=== PATIENT | female | born 1930 | race Caucasian/White ===

== ENCOUNTER 2017-04-10 18:00 | Inpatient (IN) ==
[2017-04-10 18:39] LABS: Basophils % 0.7 % (0.0-0.8); Eosinophils # 0.3 10*3/uL (0.0-0.87); Eosinophils % 4.4 % (0.00-10.9); Hematocrit 40.2 VOL% (35.7-47.0); Hemoglobin 13.6 GM/DL (12.0-16.0); Immature Granulocytes % 0.2 %; Immature Granulocytes Absolute 0.01 #; Lymphocytes # 1.5 10*3/uL (1.4-4.0); Lymphocytes % 26.2 % (21.3-54.2); Mean Corpuscular HGB Conc 33.8 GM/DL (32-36); Mean Corpuscular Hemoglobin 30 PG (27-34); Mean Corpuscular Volume 89.3 FL (87-102); Mean Platelet Volume 11.2 FL (9.6-12.0); Monocytes # 0.4 10*3/uL (0.11-0.8); Monocytes % 6.8 % (1.7-12.7); Neutrophils # 3.6 10*3/uL (1.4-7.4); Neutrophils % 61.7 % (38.7-73.9); Platelet Count 203 T/CUMM (130-400); Red Cell Distribution Width 12.6 % (9.3-17.3); White Blood Count 5.9 T/CUMM (4-12)
[2017-04-10 18:42] LABS: Apearance,Urine CLEAR (Clear); Bilirubin,Urine Negative (Negative); Blood, Urine Small mg/dL (Negative); Glucose,Urine (UA) Negative (Negative); Ketones,Urine Negative (Negative); Mucus,Urine Occasional /LPF (Occasional); Nitrite,Urine Negative (Negative); Protein,Urine 30 MG/DL; RBC,Urine 1 /HPF (0-4); Squamous Epithelial Cell,Urine Occasional /HPF (0-10); Urine Color Yellow (Yellow); Urine Specific Gravity 1.017 (1.001-1.035); Urine Urobilinogen < 2.0 EU/DL (0.2-1.0); WBC,Urine 3 /HPF (0-6)
[2017-04-10 18:49] LABS: INR 1.1; PT Patient Result 11.2 SECS; Partial Thromboplastin Time 26.3 SECS (0-40)
[2017-04-10 18:51] LABS: Barbiturates Screen,Urine Negative (Negative); Benzodiazepines Screen,Urine Negative (Negative); Cannabinoid Screen,Urine Negative (Negative); Opiate Screen,Urine Negative (Negative); Phencyclidine Screen,Urine Negative (Negative)
--- NOTE | 2017-04-10 18:51 | Emergency Department Note ---
Jeovanny Hendricks Mantricia, am scribing for, and in the presence of, Prudencio Zhao MD 18:36. Cece Hendricks Charles R, MD, personally performed the services described in this documentation, ascribed by Arcadio Up in my presence, and it is both accurate and complete [id number] . Arrival - Arrival Chief Complaint: Weakness Stated Complaint: Weakness ED Nursing Triage Note: PATIENT TO TRIAGE WITH WHEELCHAIR WITH C/O WEAKNESS TO THE LEFT SIDE. SHE STATES SHE CAN'T WALK WITHOUT HOLDING ON TO SOMEHTING AND THAT IS NOT NORMAL FOR HER. SHE STATES THAT HER LEFT SIDE DOES NOT FEEL LIKE HER RIGHT SIDE. Mode of Arrival: Wheelchair Limitations: No Limitations Source: Patient Time Seen by Provider: 04/10/17 18:13 - History of Present Illness HPI Narrative: Pt is an 87 y/o white female arriving to ED via wheelchair with c/o left sided weakness that onset today. She reports that her left arm seems heavy and she has been dragging her left leg when she walks but denies any difficulty swallowing. reports minimal slurred speech. She states that "she cannot make her legs do what she wants them to do." Pt has a PMHx of CVA in 2007 and is unsure what side was affected. She states that her last CVA was found with a MRI. No other complaints were reported to ED. Onset (ago): hour(s) Consistency: constant Severity: mild Allergies/Adverse Reactions: Allergies Allergy/AdvReac Type Severity Reaction Status Date / Time No Known Allergies Allergy Unverified 04/10/17 18:04 Home Medications: Home Medications Medication Instructions Recorded Confirmed Type Aspirin EC Tab 81 mg PO BID 04/10/17 04/10/17 History Blood Pressure Medication 0 mg PO QAM 04/10/17 04/10/17 History Colesevelam [Welchol] 1,250 mg PO AC 04/10/17 04/10/17 History Esomeprazole Magnesium 40 mg PO QAM 04/10/17 04/10/17 History [Esomeprazole] Glaucoma Drops 0 drops BOTH EYES BID 04/10/17 04/10/17 History Levothyroxine Tab [Synthroid Tab] 125 mcg PO DAILY@0700 04/10/17 04/10/17 History Review of System - Review of System 12 point system: reviewed and no additional remarkable complaints except as stated - Review of System Constitutional: Present: weakness (left sided). Absent: chills, diaphoresis Cardiovascular: Absent: chest pain Gastrointestinal: Absent: abdominal pain, nausea, vomiting, diarrhea Musculoskeletal: Absent: arm pain, back pain, leg pain, neck pain Skin: Absent: rash Neurological: Present: weakness (left sided), numbness, abnormal gait Psychiatric: Absent: anxiety, depression Medical,Surgical,& Family Hx - Medical History Neurology: History of: Cerebrovascular Accident (2007) HEENT: History of: Glaucoma - Surgical History HEENT Surgeries: Surgical HX of: Eye Surgery (Cataract) Reproductive Surgeries: Surgical HX of;: Hysterectomy - Social History Smoking Status: Never smoker Frequency of Alcohol Use: None Type of Drug Use: None Exam Vital Signs: Vital Signs Temperature 98.8 F 04/10/17 18:16 Pulse Rate 71 04/10/17 18:30 Respiratory Rate 21 04/10/17 18:30 Blood Pressure 158/59 04/10/17 18:30 O2 Sat by Pulse Oximetry 96 04/10/17 18:30 - General General appearance: alert, in no apparent distress - Head Head exam: Present: atraumatic, normocephalic, normal inspection - Eye Eye exam: Present: normal appearance, PERRL, EOMI - ENT ENT exam: Present: normal exam, normal oropharynx, mucous membranes moist, TM's normal bilaterally, normal external ear exam - Neck Neck exam: Present: normal inspection, full ROM, trachea midline. Absent: tenderness - Chest Chest inspection: Present: normal inspection, symmetric chest wall rise. Absent : tenderness - Respiratory Respiratory exam: Present: normal lung sounds bilaterally - Cardiovascular Cardiovascular exam: Present: regular rate, normal rhythm, normal heart sounds - Abdominal Exam Abdominal exam: Present: soft, normal bowel sounds. Absent: distention, tenderness, guarding, rebound - Extremities Exam Extremities exam: Present: normal inspection, full ROM, normal capillary refill. Absent: tenderness, pedal edema - Back Exam Back exam: Present: normal inspection, full ROM. Absent: tenderness - Neurological Exam Neurological exam: Present: other (left sided weakness excluding face) - Expanded Neurological Exam Patient oriented to: Present: person, place, time Cranial nerves: EOM function (II, III, IV, ): Normal, facial sensation (V): Normal, facial palsy (VII): Normal, gag reflex (IX): Normal, spinal accessory function (XI): Normal, tongue deviation (XII): Normal Cerebellar function: finger to nose: Normal, heel to friend: Normal Cerebellar function: normal gait Motor strength - LUE: 3/5 Motor strength - RUE: 5/5 Motor strength - LLE: 3/5 Motor strength - RLE: 5/5 - Psychiatric Psychiatric exam: Present: normal affect, normal mood - Skin Skin exam: Present: warm, dry, intact, normal color Course - Consultations Consultation #1: Hospitalist will admit patient Time: 19:35 Results - Labs CBC & BMP: 04/10/17 18:21 04/10/17 18:21 Lab Results: I have reviewed the patients labs Disposition Clinical Impression: CVA (cerebral vascular accident), Unsteady gait, Left-sided weakness Case discussed with: patient, patient's family Disposition: Still a Patient Condition: Stable Time of Disposition: 19:35 NIH Stroke Score - Stroke Score Initial Assessment Level of Consciousness: Alert Level of Consciousness Questions: Answers Both Correctly Level of Consciousness Commands: Obeys Both Correctly Best Gaze: Normal Visual Mendez: No Visual Loss Facial Palsy: Normal Motor - Right Arm: No Drift Motor - Left Arm: No Drift Motor - Right Leg: No Drift Motor - Left Leg: No Drift Limb Ataxia: Present in One Limb Sensory (Pin Prick): Partial Loss Best Language: Normal Dysarthria: Normal Extinction / Inattention (Neglect): No Neglect NIH Stroke Score: 2
[2017-04-10 19:02] LABS: Alanine Aminotransferase 33 U/L (13-56); Albumin 3.6 G/DL (3.4-5.0); Alkaline Phosphatase 65 U/L (45-117); Aspartate Amino Transferase 32 U/L (0-37); Bilirubin,Total < 0.39 MG/DL (0.2-1.0); Blood Urea Nitrogen 20 MG/DL (7-18); Calcium 8.8 MG/DL (8.5-10.1); Glucose 120 MG/DL (74-106); Osmolality,Calculated 284.3 MOS/KG (273-304); Potassium 4.5 MMOL/L (3.5-5.1); Sodium 141 MMOL/L (136-145); Troponin I Only < 0.015 NG/ML (0.00-0.045)
--- NOTE | 2017-04-10 19:06 | CT Report ---
CT head/brain wo con Indication: Hemiparesis. Laterality not mentioned. Comparison: None. Technique: CT of the brain was performed without administration of intravenous contrast. The CT examination was performed using one or more of the following dose reduction techniques: Automatic exposure control, adjustment of the mA and kV according to patient size, use of acute or iterative reconstruction techniques. Findings: Generalized atrophy is demonstrated. Additionally symmetric periventricular white matter hypoattenuation is noted with lacunar infarction suggested within the right basal ganglia and additional focal hypoattenuation adjacent the left caudate nucleus. No specific features of acute ischemia change are present. The basal cisterns are patent. No significant abnormality is demonstrated to involve the posterior fossa or cerebellum. Orbits and globes demonstrate no evidence of significant pathology. The paranasal sinuses are clear. No significant abnormality is demonstrated to involve the mastoid air cells. The calvarium and overlying soft tissues demonstrate no evidence of acute pathology. Impression: 1. No CT evidence of acute intracranial pathology. MRI without intravenous contrast is recommended to exclude acute ischemia. 04/10/2017 7:02 PM PROCEDURE INTERPRETED AT [facility] DEPARTMENT OF RADIOLOGY Final Report Signed by: Dr. Bruce Yi
--- NOTE | 2017-04-10 19:06 | XRay Report ---
XR chest 1V portable Indication: Cardiomegaly Comparison: None. Technique: Portable AP chest was performed. Findings: Heart size is upper limits of normal. Mild atherosclerotic calcification of the aortic knob is present. Pulmonary vasculature appears within normal limits. No significant abnormality of the mediastinal contours demonstrated. Lungs are clear. Bones and soft tissues demonstrate no significant abnormalities. Impression: 1. No evidence of acute pathology. 04/10/2017 7:03 PM PROCEDURE INTERPRETED AT [facility] DEPARTMENT OF RADIOLOGY Final Report Signed by: Dr. Bruce Yi
[2017-04-10] MEDS ORDERED: LABETALOL 20 MG/4 ML SYRINGE IV PRN (20:08)
--- NOTE | 2017-04-10 20:24 | Hospitalist History & Physical ---
Assessment and Plan (1) CVA (cerebral vascular accident) Status: Acute Current Visit: Yes (2) Left-sided weakness Status: Acute Current Visit: Yes (3) Unsteady gait Status: Acute Assessment and plan: I suspect patient has had a mild stroke. I am going to get an MRI evaluation a carotid ultrasound evaluation and consult neurology. Check a fasting lipid profile and recheck labs in the morning. She has had no difficulty swallowing or speaking. Her symptoms have been greater than 24 hours. Will get physical therapy and occupational therapy to evaluate her. Current Visit: Yes History of Present Illness Chief complaint: Weakness History of present illness: Ms. Alonso is a 87 year old female with past medical history significant for a stroke in 2007 hypertension glaucoma and hypothyroidism who is her normal state of health till last night. She reports that she was off balance and cannot walk as she normally does. Patient said her symptoms have not improved. That her left side does not feel like her right side. She denies any slurred speech or any problems swallowing. She decided to come up to our ER for evaluation today. She normally sees Dr. Rhodes I was consulted to admit her. Patient's initial CT scan was negative Home Medications Medication Instructions Recorded Confirmed Type Aspirin EC Tab 81 mg PO BID 04/10/17 04/10/17 History Blood Pressure Medication 0 mg PO QAM 04/10/17 04/10/17 History Colesevelam [Welchol] 1,250 mg PO AC 04/10/17 04/10/17 History Esomeprazole Magnesium 40 mg PO QAM 04/10/17 04/10/17 History [Esomeprazole] Glaucoma Drops 0 drops BOTH EYES BID 04/10/17 04/10/17 History Levothyroxine Tab [Synthroid Tab] 125 mcg PO DAILY@0700 04/10/17 04/10/17 History Allergies Allergy/AdvReac Type Severity Reaction Status Date / Time No Known Allergies Allergy Unverified 04/10/17 18:04 Medical,Surgical,& Family Hx - Medical History Neurology: History of: Cerebrovascular Accident (2007) HEENT: History of: Glaucoma - Surgical History HEENT Surgeries: Surgical HX of: Eye Surgery (Cataract) Reproductive Surgeries: Surgical HX of;: Hysterectomy - Family History Family History: Reports;: Family Heart Disease - Social History Smoking Status: Never smoker Frequency of Alcohol Use: None Type of Drug Use: None 12 point system: reviewed and no additional remarkable complaints except as stated Exam - Constitutional Vitals: Period Temp Pulse Resp BP Sys/Watts Pulse Ox Last 24 Hr 98.8 F-98.8 F 71-85 18-21 109-178/59-83 96-99 - General General appearance: alert, in no apparent distress - Head Head exam: Present: atraumatic, normocephalic, normal inspection - Eye Eye exam: Present: normal appearance, PERRL, EOMI - ENT ENT exam: Present: normal exam, normal oropharynx, mucous membranes moist, TM's normal bilaterally, normal external ear exam - Neck Neck exam: Present: normal inspection, full ROM, trachea midline. Absent: tenderness - Chest Chest inspection: Present: normal inspection, symmetric chest wall rise. Absent : tenderness - Respiratory Respiratory exam: Present: normal lung sounds bilaterally - Cardiovascular Cardiovascular exam: Present: regular rate, normal rhythm, normal heart sounds - Abdominal Exam Abdominal exam: Present: soft, normal bowel sounds. Absent: distention, tenderness, guarding, rebound - Extremities Exam Extremities exam: Present: normal inspection, full ROM, normal capillary refill. Absent: tenderness, pedal edema - Back Exam Back exam: Present: normal inspection, full ROM. Absent: tenderness - Neurological Exam Neurological exam: Present: other (left sided weakness excluding face) patient had no tongue deviation facial sensation is normal bilaterally. She does seem to be having left upper extremity and right and left lower extremity weakness. I would rate the weakness is a 3 out of 5 - Psychiatric Psychiatric exam: Present: normal affect, normal mood - Skin Skin exam: Present: warm, dry, intact, normal color Results - Labs CBC & BMP: 04/10/17 18:21 04/10/17 18:21
[2017-04-10 20:38] LABS: Risk Ratio 3.21
[2017-04-10] MEDS: ENOXAPARIN 40 MG/0.4 ML SYRINGE SUBCUT SCH (22:00)
--- NOTE | 2017-04-11 02:12 | EKG Report ---
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
--- NOTE | 2017-04-11 08:05 | Ultrasound Report ---
US carotid duplex BI Indication: Left-sided weakness. Comparison: None. Technique: Multiple longitudinal and transverse real-time sonographic images of the bilateral carotid arterial systems are obtained with grayscale, spectral, and color Doppler analysis. Findings: Peak systolic velocities within the right CCA, proximal ICA, and distal ICA are 65, 56, and 72 cm/s respectively. Peak systolic velocities within the left CCA, proximal ICA, and distal ICA are 74, 55, and 61 cm/s respectively. ICA/CCA ratios on the right and left are 1.1 and 0.8 respectively. Antegrade flow demonstrated within the bilateral vertebral arteries. Grayscale imaging demonstrates mild bilateral atherosclerotic plaque. IMPRESSION: No convincing sonographic evidence of significant (50% or greater) narrowing of either cervical internal carotid artery. Indirect NASCET criteria utilized. PROCEDURE INTERPRETED AT [facility] DEPARTMENT OF RADIOLOGY Final Report Signed by: Dr Mathew Quinonez
[2017-04-11 08:09] LABS: Basophils # 0.1 10*3/uL (0.0-0.2); Basophils % 0.9 % (0.0-0.8); Eosinophils # 0.3 10*3/uL (0.0-0.87); Eosinophils % 5.3 % (0.00-10.9); Hematocrit 39.5 VOL% (35.7-47.0); Hemoglobin 13.7 GM/DL (12.0-16.0); Immature Granulocytes % 0.4 %; Immature Granulocytes Absolute 0.02 #; Lymphocytes # 1.5 10*3/uL (1.4-4.0); Lymphocytes % 27.5 % (21.3-54.2); Mean Corpuscular HGB Conc 34.7 GM/DL (32-36); Mean Corpuscular Hemoglobin 31 PG (27-34); Mean Corpuscular Volume 88.2 FL (87-102); Mean Platelet Volume 11.4 FL (9.6-12.0); Monocytes # 0.5 10*3/uL (0.11-0.8); Monocytes % 8.4 % (1.7-12.7); Neutrophils # 3.2 10*3/uL (1.4-7.4); Neutrophils % 57.5 % (38.7-73.9); Platelet Count 211 T/CUMM (130-400); Red Blood Count 4.48 MC/CUMM (3.8-5.5); Red Cell Distribution Width 12.5 % (9.3-17.3); White Blood Count 5.6 T/CUMM (4-12)
[2017-04-11 08:44] LABS: Calcium 8.4 MG/DL (8.5-10.1); Potassium 3.9 MMOL/L (3.5-5.1)
[2017-04-11] MEDS: COLESEVELAM 625 MG TABLET PO SCH ×3 (09:15→16:08)
[2017-04-11] MEDS: ASPIRIN 325 MG TABLET PO SCH (09:16)
[2017-04-11] MEDS: LEVOTHYROXINE 125 MCG TABLET PO SCH (09:16)
[2017-04-11] MEDS: PANTOPRAZOLE 40 MG TABLET PO SCH (09:16)
--- NOTE | 2017-04-11 10:27 | Hospitalist Progress Note ---
Assessment and Plan (1) CVA (cerebral vascular accident) Status: Acute Assessment and plan: 1)CVA- clinically her presentation is consistent with stroke. MRI, echo, carotids. LDL 130- start statin. Dr perdomo to see. Begin asa. PT and OT. BP 151 /72, restart usual norvasc. 2)follow up with Dr Man her PCP after discharge. Current Visit: Yes Hospitalist: Subjective Interval history: Ms Alonso started to have left arm and leg weakness a week ago and came in yesterday because it wasn't getting better. In fact it had not changed. Head CT unrevealing. MRI brain today with carotids, add echo. PT and OT to see. Dr Perdomo to see. She wants to go home today.. Exam - Constitutional Vitals: Period Temp Pulse Resp BP Sys/Watts Pulse Ox Last 24 Hr 97.1 F-98.8 F 68-84 18-21 149-178/59-83 92-99 General appearance: normal weight, no acute distress - Head Head exam: Present: normocephalic, atraumatic - Eye Eye exam: Present: EOMI. Absent: scleral icterus Pupils: Present: NAVEEN - Respiratory Respiratory exam: Present: clear to auscultation bilaterally - Cardiovascular Cardiovascular exam: Present: regular rate and rhythm - GI/Abdominal GI/Abdominal exam: Present: normal bowel sounds, soft. Absent: tenderness - Extremities Exam Extremities exam: Absent: edema - Neurological Exam Neurological exam: Present: alert, oriented X3 - Expanded Neurological Exam Neurological exam: Absent: ataxia, expressive aphasia Patient oriented to: Present: person, place, time Speech: Present: fluid speech Cranial nerves: EOM's intact: Normal, facial palsy with forehead movement: Normal, facial palsy without forehead movement: Normal Cerebellar function: finger to nose: Normal, heel to friend: Normal Neuro motor strength exam: LUE: 4, RUE: 5, LLE: 4, RLE: 5 - Skin Skin exam: Present: warm, dry Results - Labs CBC & BMP: 04/11/17 07:53 04/11/17 07:53 Lab Results: I have reviewed the past 24 hour labs
--- NOTE | 2017-04-11 12:58 | Magnetic Resonance Report ---
History: CVA. Left-sided weakness Date: 04/11/2017 Study: MRI brain without IV contrast Comparison exam: No previous MRI brain available for comparison purposes. CT scan from 04/10/2017 is available for review The exam was performed within 24 hours of admission. The brain was imaged in 3 planes on the 1.5 [place] magnet without IV contrast, to include diffusion, T2, FLAIR, gradient echo, and T1-weighted sequences. The ventricles are midline in position without evidence of hydrocephalus. There is no Chiari I malformation. There is no gross pituitary mass. There is a roughly 10 mm rounded area of restricted diffusion in the right parietal deep white matter compatible with acute ischemia between 6 hours and 4 days old. No areas of acute ischemia are seen otherwise. There is no acute hemorrhage. There is a punctate focus of hypointense gradient echo signal compatible with hemosiderin from remote hemorrhage within the anterior aspect of the right thalamus. There is a moderate amount of patchy increased FLAIR and T2 signal in the periventricular white matter without mass effect compatible with changes of small vessel disease. Mild small vessel disease is also noted in the vashti and midbrain. Punctate foci of hypointense T1 and increased T2 signal compatible with areas of chronic lacunar ischemia are noted in the putamen bilaterally and left thalamus. Chronic lacunar infarction is also noted in the caudate nuclei bilaterally. There is no mass effect. There is no extra-axial hematoma. There is a normal flow void in superior sagittal sinus. There is no gross flow abnormality in the m[place] of [place] area. Remote post cataract surgery changes are present bilaterally. Impression: 10 mm area of acute ischemia in the right parietal deep white matter. No acute parenchymal hemorrhage. Evidence of a small focus of remote hemorrhage in the right thalamus. Chronic ischemic changes PROCEDURE INTERPRETED AT [facility] DEPARTMENT OF RADIOLOGY Final Report Signed by: Dr. Tami Christianson
[2017-04-11] MEDS: amLODIPine 5 MG TABLET PO SCH (13:46)
[2017-04-11] MEDS: ATORVASTATIN 10 MG TABLET PO SCH (13:46)
--- NOTE | 2017-04-11 15:18 | Neurology Consult Note ---
History of Present Illness History of present illness: 87 years old right-handed white lady with past medical history significant for hypertension, history of a stroke in 2007 without any residual problem, hypothyroidism admitted the hospital with acute onset of left-sided weakness and numbness. Patient reported that she noticed yesterday that she has difficulty in maneuvering her left leg. She also noticed that her left arm was not working right either. She denies any speech difficulties or swallowing problems. She denies any vision problems either. She came to the hospital and underwent MRI of the brain which revealed acute right parietal lobe infarct. Carotid ultrasound is unremarkable. Lipid profile is significantly abnormal and she is on Lipitor now. She is able to get up and walk with the help of a walker. Home Medications Medication Instructions Recorded Confirmed Type Colesevelam [Welchol] 1,250 mg PO TID 04/10/17 04/11/17 History Esomeprazole Magnesium 40 mg PO QAM 04/10/17 04/10/17 History [Esomeprazole] Levothyroxine Tab [Synthroid Tab] 125 mcg PO DAILY@0700 04/10/17 04/11/17 History Alendronate Sodium 35 mg PO Q7DAY 04/11/17 04/11/17 History Amlodipine Besylate 5 mg PO DAILY 04/11/17 04/11/17 History Colesevelam [Welchol] 625 mg PO DAILY 04/11/17 04/11/17 History Esomeprazole Magnesium [Nexium] 40 mg PO DAILY 04/11/17 04/11/17 History Latanoprost 0.005% Oph Soln 1 drop BOTH EYES BEDTIME 04/11/17 04/11/17 History [Xalatan 0.005% Oph Soln] Timolol Maleate [Timolol 0.5% Oph 1 drop BOTH EYES DAILY 04/11/17 04/11/17 History Soln] Allergies Allergy/AdvReac Type Severity Reaction Status Date / Time No Known Allergies Allergy Unverified 04/10/17 18:04 12 point system: reviewed and no additional remarkable complaints except as stated Medical,Surgical,& Family Hx - Medical History Cardio: History of: Hypertension Neurology: History of: Cerebrovascular Accident (2007) HEENT: History of: Glaucoma - Surgical History HEENT Surgeries: Surgical HX of: Eye Surgery (Cataract) Reproductive Surgeries: Surgical HX of;: Gynecologic Surgery, Hysterectomy - Family History Family History: Reports;: Family Heart Disease - Social History Smoking Status: Never smoker Frequency of Alcohol Use: None Type of Drug Use: None Exam - Constitutional Vitals: Period Temp Pulse Resp BP Sys/Watts Pulse Ox Last 24 Hr 97.1 F-98.8 F 68-84 18-21 149-178/59-83 92-99 Exam: GENERAL: Patient is in no acute distress. NECK: Neck is supple. There is no JVD. No carotid bruits present. No thyroid masses. CVS: First and second heart sounds are normal. There is no S3 present. Regular rate and rhythm. RESPIRATORY: Lungs are clear to auscultation without any rales or rhonchi. ABDOMEN: Soft and non-tender. Bowel sounds are present. There is no hepatosplenomegaly. EXT: There is no palpable edema. Peripheral pulses are present. Skin: No rashes Central Nervous system: General: Alert, awake and Oriented x 3 Speech: Fluent Comprehension: Intact and normal Facial expressions: Normal Cranial Nerves: CN1/Olfactory: Normal CN II/ Optic: Normal, Visual Mendez unreliable CN III, and : NAVEEN & EOMI CN V: Normal & intact CN VII: face is symmetric CNVIII: Normal CN XI/X/XI/XII: Intact and Normal Motor: Bulk and Tone is normal. Strength in the right 5/5 Strength in the left 4+/5 Sensory: Decreased for all the modalities of PP, LT and temp sense in the left arm and leg Reflexes: 1+ and symmetrical Cerebellar function: Normal finger to nose and heel to friend testing. Toes: Equivocal Gait: Not tested at this time Results - Labs CBC & BMP: 04/11/17 07:53 04/11/17 07:53 Assessment and Plan (1) Acute CVA (cerebrovascular accident) Status: Acute Assessment and plan: Continue aspirin a day Outpatient PT and OT Current Visit: Yes (2) Hyperlipidemia Status: Acute Assessment and plan: Agree with aggressive statin use and lipid management Thank you for the consult Current Visit: Yes
[2017-04-11] MEDS: ENOXAPARIN 40 MG/0.4 ML SYRINGE SUBCUT SCH (20:53)
[2017-04-11] MEDS ORDERED: LATANOPROST 0.005% OPH SOLN 2.5 ML BOTTLE BOTH EYES SCH (21:00)
[2017-04-12] MEDS: LEVOTHYROXINE 125 MCG TABLET PO SCH ×2 (05:59→08:39)
--- NOTE | 2017-04-12 06:56 | ECHO Report ---
Paige Alonso 04/11/2017 Exam Date: 13:06 Referring Physician: donavan Wallace Technologist: NOLAN MARTIN Age: 87 Ht (in): 61 Wt (lb): 122 [facility]Ex[facility] Echo [id number]: Lt. sided weakness, CVA, Unsteady gaitIndications: BP: 151 / 72 HR: 74 SinusRhythm: FairTechnical Quality: IMPRESSIONS Normal LV systolic function, ejection fraction 65%. Grade 1/4 diastolic dysfunction. Trace mitral and pulmonic regurgitation. Mild tricuspid and aortic regurgitation. MEASUREMENTS (Male / Female) Normal Values 2D ECHO LV Diastolic Diameter PLAX 3.8 cm 4.2 - 5.9 / 3.9 - 5.3 cm LV Systolic Diameter PLAX 2.1 cm LV Fractional Shortening PLAX 43.1 % IVS Diastolic Thickness 1.1 cm 0.6 - 1.0 / 0.6 - 0.9 cm LVPW Diastolic Thickness 1.1 cm 0.6 - 1.0 / 0.6 - 0.9 cm RV Internal Dim ED PLAX 2.7 cm Aortic Root Diameter 2.4 cm LA Systolic Diameter LX 2.7 cm 3.0 - 4.0 / 2.7 - 3.8 cm DOPPLER TR Peak Velocity 261.0 cm/s TR Peak Gradient 27.2 mmHg FINDINGS Left Ventricle Normal left ventricular cavity size. Normal left ventricular wall thickness. Left ventricular ejection fraction is estimated at 65 %. Right Ventricle The right ventricle is normal in size and function. Right Atrium The right atrium is normal in size. Left Atrium The left atrium is normal in size. Mitral Valve Morphologically normal mitral valve. Trace mitral valve regurgitation. Aortic Valve No aortic valve stenosis. Mild aortic valve regurgitation. Tricuspid Valve Morphologically normal tricuspid valve. Mild tricuspid valve regurgitation. Pulmonic Valve Morphologically normal pulmonic valve. Trace pulmonary valve regurgitation. Pericardium Normal pericardium without effusion. Aorta Normal ascending aorta dimension. Elizabeth Buckley MD (Electronically Signed) 12 April 2017 Final Date: 06:55
[2017-04-12] MEDS: ASPIRIN 325 MG TABLET PO SCH (08:38)
[2017-04-12] MEDS: COLESEVELAM 625 MG TABLET PO SCH ×2 (08:38→12:12)
[2017-04-12] MEDS: amLODIPine 5 MG TABLET PO SCH (08:39)
[2017-04-12] MEDS: ATORVASTATIN 10 MG TABLET PO SCH (08:40)
[2017-04-12] MEDS ORDERED: TIMOLOL 0.5% OPH SOLN 5 ML BOTTLE BOTH EYES SCH (09:00)
[2017-04-12] MEDS: PANTOPRAZOLE 40 MG TABLET PO SCH (10:12)
--- NOTE | 2017-04-12 11:00 | Discharge Summary ---
Hospital Course - Hospital Course Hospital Course: Mrs Alonso presented a week after having abrupt onset of left side arm and leg weakness. She was evaluated with carotids, echo, MRI brain , PT and OT , neuro consult, lipid panel. The MRI showed an acute stroke. Her carotid disease was unremarkable. Seh was started on ASA. She refused lipitor because that type of medicine had made her sick in the past. She will continue Welchol. She will have outpatient PT and OT and see Dr Man her PCP and DR Katz in the clinic. I told her that if thsi happens again she should come as soon as she notices the symptoms because she might be a candidate for TPA. - Time spent with patient Time with patient DS: Greater than 30 minutes (exam, discharge planning, medicine reconciliation, documentation) Diagnosis - Discharge Diagnosis (1) CVA (cerebral vascular accident) Status: Acute Specialty Discharge - Follow Up or Referrals Follow up with: Varun Katz MD [Physician] - 05/23/17 9:45 am Aurelio Man MD [Physician] - 04/18/17 1:45 pm Discharge Plan - Discharge Data Disposition: Home Health Service Condition at Discharge: Stable Discharge Diet: heart healthy, regular diet Activity: resume usual activities as tolerated, as per physical therapy - Discharge Medications New Aspirin Tab 325 mg PO DAILY tablet Atorvastatin [Lipitor] 10 mg PO DAILY #30 tablet Continue Esomeprazole Magnesium [Esomeprazole] 40 mg PO QAM Colesevelam [Welchol] 1,250 mg PO TID Timolol Maleate [Timolol 0.5% Oph Soln] 1 drop BOTH EYES DAILY Latanoprost 0.005% Oph Soln [Xalatan 0.005% Oph Soln] 1 drop BOTH EYES BEDTIME Alendronate Sodium 35 mg PO Q7DAY Levothyroxine Tab [Synthroid Tab] 125 mcg PO DAILY@0700 Amlodipine Besylate 5 mg PO DAILY Colesevelam [Welchol] 625 mg PO DAILY Discontinued Esomeprazole Magnesium [Nexium] 40 mg PO DAILY - Follow Up or Referral Follow Up: Varun Katz MD [Physician] - 05/23/17 9:45 am Aurelio Man MD [Physician] - 04/18/17 1:45 pm - Forms/Instructions Instructions: Ischemic Stroke (DC), Self Care Measures After a Stroke (DC) Exam - Constitutional Vitals: Period Temp Pulse Resp BP Sys/Watts Pulse Ox Last 24 Hr 97.2 F-97.8 F 71-95 17-20 120-145/64-84 93-97 General appearance: normal weight, no acute distress - Eye Eye exam: Present: EOMI. Absent: scleral icterus - Respiratory Respiratory exam: Present: clear to auscultation bilaterally - Cardiovascular Cardiovascular exam: Present: regular rate and rhythm - GI/Abdominal GI/Abdominal exam: Present: normal bowel sounds, soft. Absent: tenderness - Extremities Exam Extremities exam: Absent: edema - Neurological Exam Neurological exam: Present: alert, oriented X3, motor sensory deficit (left arm and leg with 4/5 strength. ambulates with walker ok. ). Absent: CN II-XII intact (speech clear) - Skin Skin exam: Present: warm, dry DS: Provider Date of admission: 04/10/17 20:08 Primary care physician: . No PCP Attending physician on admission: Manish Browne MD Consults: 04/10/17 20:09 Consult to Case Mgmt/Social Srvs [CONS] Routine Reason for Case Mgmt/Social Srvs: Discharge Planning Consult to Occupational Therapy [CONS] Routine Reason for Occupational Therapy: Evaluate and Treat Consult Comment: Stroke Consult to Physical Therapy [CONS] Routine Reason for Physical Therapy: Evaluate and Treat Consult Comment: stroke 04/10/17 20:16 Consult to Physician [CONS] Routine Comment: Consulting Provider: Varun Katz Consult to Specialist Group: Neurology When should Consulting Provider be notified: In am Person Notified: raffi Date Notified: 04/11/17 Time Notified: 12:44 Consult Notification Comment: left message 04/11 at 0905 04/12/17 08:25 Consult to Case Mgmt/Social Srvs [CONS] Routine Reason for Case Mgmt/Social Srvs: Home Health Consult Comment: with pt/ot Discharging clinician: Dali Leary MD
[2017-04-12 11:46] VITALS: BP 133/71
[2017-04-18] MEDS ORDERED: Alendronate Sodium [Alendronate Sodium] 35 MG Tablet PO SCH (09:00)
== END 2017-04-12 12:42 | disposition home health service (06) | DRG 65 ==
LOC: N.ED 18:00 → N.EDINP 20:08 → SUATTDRO 20:08 → N.5E 20:56
PROVIDERS: ADMIT Internal Medicine; ATTEND Internal Medicine

== ENCOUNTER 2019-08-27 11:11 | Observation (INO) ==
[2019-08-27] MEDS ORDERED: MORPHINE 4 MG/1 ML VIAL IV STA (12:26)
[2019-08-27] MEDS ORDERED: ONDANSETRON 4 MG/2 ML VIAL IV STA (12:26)
[2019-08-27 12:48] LABS: Basophils % 0.3 % (0.0-0.8); Eosinophils % 0.3 % (0.00-10.9); Hematocrit 40.3 VOL% (35.7-47.0); Hemoglobin 13.1 GM/DL (12.0-16.0); Immature Granulocytes % 0.4 %; Immature Granulocytes Absolute 0.04 #; Lymphocytes % 9.7 % (21.3-54.2); Mean Corpuscular HGB Conc 32.5 GM/DL (32-36); Mean Corpuscular Volume 90.4 FL (87-102); Mean Platelet Volume 10.5 FL (9.6-12.0); Monocytes % 2.7 % (1.7-12.7); Neutrophils % 86.6 % (38.7-73.9); Platelet Count 337 T/CUMM (130-400); Red Blood Count 4.46 MC/CUMM (3.8-5.5); Red Cell Distribution Width 12.6 % (9.3-17.3)
[2019-08-27] MEDS ORDERED: ONDANSETRON 4 MG/2 ML VIAL IV PRN (13:11)
[2019-08-27] MEDS ORDERED: ACETAMINOPHEN 325 MG TABLET PO PRN (13:11)
[2019-08-27] MEDS ORDERED: LACTULOSE 20 GM/30 ML UDCUP PO PRN (13:11)
[2019-08-27 13:16] LABS: Apearance,Urine CLEAR (Clear); Bilirubin,Urine Negative (Negative); Blood, Urine Negative (Negative); Glucose,Urine (UA) Negative (Negative); Ketones,Urine Negative (Negative); Nitrite,Urine Negative (Negative); Protein,Urine 100 MG/DL; RBC,Urine 2 /HPF (0-4); Squamous Epithelial Cell,Urine Occasional /HPF (0-10); Urine Color Straw (Yellow); Urine Specific Gravity 1.015 (1.001-1.035); Urine Urobilinogen < 2.0 EU/DL (0.2-1.0); WBC,Urine 1 /HPF (0-6)
[2019-08-27 14:11] LABS: Risk Ratio 2.82; Thyroid Stimulating Hormone 0.198 uIU/ml (0.358-3.74); VLDL CHOLESTEROL 26.4 MG/DL
[2019-08-27 14:12] LABS: Calcium 8.8 MG/DL (8.5-10.1); Osmolality,Calculated 291.7 MOS/KG (273-304)
[2019-08-27] MEDS ORDERED: ALENDRONATE 35 MG PO SCH (15:15)
[2019-08-27] MEDS ORDERED: METHOCARBAMOL 750 MG TABLET PO PRN (15:15)
[2019-08-27] MEDS ORDERED: MORPHINE 4 MG/1 ML VIAL IV PRN (15:19)
[2019-08-27] MEDS: ENOXAPARIN 40 MG/0.4 ML SYRINGE SUBCUT SCH (17:46)
[2019-08-27] MEDS: COLESEVELAM 625 MG TABLET PO SCH (17:47)
[2019-08-27] MEDS: LATANOPROST 0.005% OPH SOLN 2.5 ML BOTTLE BOTH EYES SCH (21:42)
[2019-08-27] MEDS: hydroCHLOROthiazide 12.5 MG CAPSULE PO SCH (21:44)
[2019-08-28] MEDS: LEVOTHYROXINE 125 MCG TABLET PO SCH (05:56)
[2019-08-28 06:16] LABS: Basophils % 0.5 % (0.0-0.8); Eosinophils # 0.2 10*3/uL (0.0-0.87); Eosinophils % 2.2 % (0.00-10.9); Hematocrit 37.2 VOL% (35.7-47.0); Hemoglobin 12.2 GM/DL (12.0-16.0); Immature Granulocytes % 0.2 %; Immature Granulocytes Absolute 0.02 #; Lymphocytes # 2.7 10*3/uL (1.4-4.0); Lymphocytes % 31.8 % (21.3-54.2); Mean Corpuscular HGB Conc 32.8 GM/DL (32-36); Mean Corpuscular Volume 90.5 FL (87-102); Mean Platelet Volume 11.1 FL (9.6-12.0); Monocytes % 8.4 % (1.7-12.7); Neutrophils % 56.9 % (38.7-73.9); Platelet Count 307 T/CUMM (130-400); Red Blood Count 4.11 MC/CUMM (3.8-5.5); Red Cell Distribution Width 12.6 % (9.3-17.3); White Blood Count 8.4 T/CUMM (4-12)
[2019-08-28 06:36] LABS: Calcium 8.2 MG/DL (8.5-10.1)
[2019-08-28 06:46] LABS: Free T4 (Free Thyroxine) 1.33 NG/DL (0.76-1.46)
[2019-08-28 08:53] LABS: Folate 21.8 NG/ML (5.4-24.0)
[2019-08-28] MEDS ORDERED: NON-FORMULARY MEDICATION (Mirabegron [Myrbetriq] 50 MG) PO SCH (09:00)
[2019-08-28] MEDS: PANTOPRAZOLE 40 MG TABLET PO SCH (09:03)
[2019-08-28] MEDS: ASPIRIN 325 MG TABLET PO SCH (09:03)
[2019-08-28] MEDS: amLODIPine 5 MG TABLET PO SCH (09:03)
[2019-08-28] MEDS: hydroCHLOROthiazide 12.5 MG CAPSULE PO SCH ×2 (09:04→21:40)
[2019-08-28] MEDS: COLESEVELAM 625 MG TABLET PO SCH ×3 (09:04→18:50)
[2019-08-28] MEDS: POTASSIUM CHLORIDE 10 MEQ TABLET PO SCH (09:04)
[2019-08-28] MEDS: TAMSULOSIN 0.4 MG CAPSULE PO SCH (09:15)
[2019-08-28] MEDS: ENOXAPARIN 40 MG/0.4 ML SYRINGE SUBCUT SCH (15:53)
[2019-08-28] MEDS: LATANOPROST 0.005% OPH SOLN 2.5 ML BOTTLE BOTH EYES SCH (21:41)
[2019-08-29] MEDS: LEVOTHYROXINE 125 MCG TABLET PO SCH (05:57)
[2019-08-29 06:09] LABS: Basophils # 0.1 10*3/uL (0.0-0.2); Basophils % 0.8 % (0.0-0.8); Eosinophils # 0.3 10*3/uL (0.0-0.87); Eosinophils % 3.5 % (0.00-10.9); Hematocrit 39.8 VOL% (35.7-47.0); Hemoglobin 13.3 GM/DL (12.0-16.0); Immature Granulocytes % 0.4 %; Immature Granulocytes Absolute 0.03 #; Lymphocytes # 1.6 10*3/uL (1.4-4.0); Lymphocytes % 20.2 % (21.3-54.2); Mean Corpuscular HGB Conc 33.4 GM/DL (32-36); Mean Corpuscular Volume 88.8 FL (87-102); Monocytes % 8.5 % (1.7-12.7); Neutrophils % 66.6 % (38.7-73.9); Platelet Count 314 T/CUMM (130-400); Red Blood Count 4.48 MC/CUMM (3.8-5.5); Red Cell Distribution Width 12.2 % (9.3-17.3); White Blood Count 7.7 T/CUMM (4-12)
[2019-08-29 06:21] LABS: Calcium 8.2 MG/DL (8.5-10.1); Osmolality,Calculated 283.1 MOS/KG (273-304)
[2019-08-29] MEDS: POTASSIUM CHLORIDE 10 MEQ TABLET PO SCH (08:56)
[2019-08-29] MEDS: amLODIPine 5 MG TABLET PO SCH (08:56)
[2019-08-29] MEDS: PANTOPRAZOLE 40 MG TABLET PO SCH (08:56)
[2019-08-29] MEDS: COLESEVELAM 625 MG TABLET PO SCH ×3 (08:56→17:20)
[2019-08-29] MEDS: ASPIRIN 325 MG TABLET PO SCH (08:56)
[2019-08-29] MEDS: hydroCHLOROthiazide 12.5 MG CAPSULE PO SCH ×2 (08:56→20:49)
[2019-08-29] MEDS: TAMSULOSIN 0.4 MG CAPSULE PO SCH (09:22)
[2019-08-29] MEDS: ENOXAPARIN 40 MG/0.4 ML SYRINGE SUBCUT SCH (12:39)
[2019-08-29] MEDS: LATANOPROST 0.005% OPH SOLN 2.5 ML BOTTLE BOTH EYES SCH (20:45)
[2019-08-30] MEDS: LEVOTHYROXINE 125 MCG TABLET PO SCH (07:10)
[2019-08-30] MEDS: amLODIPine 5 MG TABLET PO SCH (09:29)
[2019-08-30] MEDS: COLESEVELAM 625 MG TABLET PO SCH ×2 (09:29→11:53)
[2019-08-30] MEDS: hydroCHLOROthiazide 12.5 MG CAPSULE PO SCH (09:29)
[2019-08-30] MEDS: ASPIRIN 325 MG TABLET PO SCH (09:29)
[2019-08-30] MEDS: TAMSULOSIN 0.4 MG CAPSULE PO SCH (09:30)
[2019-08-30] MEDS: PANTOPRAZOLE 40 MG TABLET PO SCH (09:30)
[2019-08-30] MEDS: POTASSIUM CHLORIDE 10 MEQ TABLET PO SCH (09:31)
[2019-08-30 12:18] VITALS: BP 132/66
== END 2019-08-30 12:45 | disposition swing bed (61) ==
LOC: EDBD → EDUNIT# → N.EDINP 11:11 → N.ED 11:11 → SUATTDRO 13:27 → N.3E 14:39
PROVIDERS: ADMIT Family Medicine; ATTEND Internal Medicine

== ENCOUNTER 2020-01-20 20:10 | Inpatient (IN) ==
[2020-01-20] MEDS ORDERED: ONDANSETRON 4 MG/2 ML VIAL IV STA (20:35)
[2020-01-20] MEDS ORDERED: HYDROmorphone 2 MG/1 ML VIAL IV STA (20:35)
[2020-01-20] MEDS ORDERED: SODIUM CHLORIDE 0.9% 500 ML IV STA (20:35)
[2020-01-20 21:19] LABS: Basophils # 0.1 10*3/uL (0.0-0.2); Basophils % 0.5 % (0.0-0.8); Eosinophils # 0.3 10*3/uL (0.0-0.87); Eosinophils % 2.8 % (0.00-10.9); Hematocrit 42.4 VOL% (35.7-47.0); Hemoglobin 13.8 GM/DL (12.0-16.0); Immature Granulocytes % 0.6 %; Immature Granulocytes Absolute 0.06 #; Lymphocytes # 1.9 10*3/uL (1.4-4.0); Lymphocytes % 20.1 % (21.3-54.2); Mean Corpuscular HGB Conc 32.5 GM/DL (32-36); Mean Corpuscular Volume 90.8 FL (87-102); Mean Platelet Volume 10.8 FL (9.6-12.0); Monocytes % 6.1 % (1.7-12.7); Neutrophils % 69.9 % (38.7-73.9); Platelet Count 223 T/CUMM (130-400); Red Blood Count 4.67 MC/CUMM (3.8-5.5); Red Cell Distribution Width 12.6 % (9.3-17.3); White Blood Count 9.5 T/CUMM (4-12)
[2020-01-20] MEDS ORDERED: NICOTINE 21 MG/24 HR PATCH TRANSDERM PRN (21:20)
[2020-01-20] MEDS ORDERED: MORPHINE 4 MG/1 ML VIAL IV PRN (21:20)
[2020-01-20] MEDS ORDERED: ONDANSETRON 4 MG/2 ML VIAL IV PRN (21:20)
[2020-01-20] MEDS ORDERED: ACETAMINOPHEN 325 MG TABLET PO PRN (21:20)
[2020-01-20] MEDS ORDERED: GLUCAGON 1 MG VIAL IM PRN (21:20)
[2020-01-20] MEDS ORDERED: hydrALAZINE 20 MG/1 ML VIAL IV PRN (21:20)
[2020-01-20] MEDS ORDERED: DEXTROSE 10% 250 ML BAG IV PRN (21:30)
[2020-01-20 21:46] LABS: INR 1.1; PT Patient Result 11.4 SECS (9.8-11.9)
[2020-01-20 21:58] LABS: Alanine Aminotransferase 24 U/L (13-56); Albumin 2.8 G/DL (3.4-5.0); Alkaline Phosphatase 82 U/L (45-117); Aspartate Amino Transferase 29 U/L (0-37); Bilirubin,Total < 0.39 MG/DL (0.2-1.0); Blood Urea Nitrogen 22 MG/DL (7-18); Calcium 8.6 MG/DL (8.5-10.1); Estimated Glom Filtration Rate 47 ML/MIN; Glucose 113 MG/DL (74-106); Osmolality,Calculated 284.3 MOS/KG (273-304); Total Protein 6.4 G/DL (6.4-8.3)
[2020-01-20 22:01] LABS: Apearance,Urine CLEAR (Clear); Bacteria,Urine Occasional /HPF (Few); Bilirubin,Urine Negative (Negative); Blood, Urine Small mg/dL (Negative); Glucose,Urine (UA) Negative (Negative); Hyaline Casts,Urine 3 /LPF (0-3); Ketones,Urine Negative (Negative); Nitrite,Urine Negative (Negative); Protein,Urine 100 MG/DL; RBC,Urine 11 /HPF (0-4); Squamous Epithelial Cell,Urine Occasional /HPF (0-10); Urine Color Straw (Yellow); Urine Specific Gravity 1.013 (1.001-1.035); Urine Urobilinogen < 2.0 EU/DL (0.2-1.0); WBC,Urine 1 /HPF (0-6)
[2020-01-21] MEDS: SODIUM CHLORIDE 0.9% 1,000 ML IV SCH ×2 (14:31→19:53)
[2020-01-21] MEDS ORDERED: BUPIVACAINE MPF 0.5% /EPI 30 ML VIAL ONE (14:38)
[2020-01-21] MEDS ORDERED: BUPIVACAINE SPINAL 0.75% 2 ML AMP SPINAL ONE (15:23)
[2020-01-21] MEDS ORDERED: TRANEXAMIC ACID 1,000 MG/10 ML VIAL ONE (15:53)
[2020-01-21] MEDS ORDERED: ceFAZolin 1,000 MG VIAL ONE (15:53)
[2020-01-21] MEDS: COLESEVELAM 625 MG TABLET PO SCH (17:00)
[2020-01-21] MEDS ORDERED: ALBUMIN 5% 12.5 GM/250 ML VIAL IV ONE (17:45)
[2020-01-21] MEDS ORDERED: propofoL 200 MG/20 ML VIAL IV ONE (17:45)
[2020-01-21] MEDS ORDERED: DEXMEDETOMIDINE 200 MCG/2 ML VIAL ONE (17:46)
[2020-01-21] MEDS ORDERED: KETAMINE 500 MG/10 ML VIAL ONE (17:46)
[2020-01-21] MEDS ORDERED: PHENYLEPHRINE 1 MG/10 ML SYRINGE IV ONE (17:46)
[2020-01-21] MEDS ORDERED: LACTATED RINGERS 1,000 ML IV ONE (17:46)
[2020-01-21] MEDS: ENOXAPARIN 30 MG/0.3 ML SYRINGE SUBCUT SCH (18:00)
[2020-01-21 19:58] LABS: Basophils % 0.2 % (0.0-0.8); Hematocrit 33.5 VOL% (35.7-47.0); Hemoglobin 10.7 GM/DL (12.0-16.0); Immature Granulocytes % 0.5 %; Immature Granulocytes Absolute 0.05 #; Lymphocytes # 0.8 10*3/uL (1.4-4.0); Lymphocytes % 8.1 % (21.3-54.2); Mean Corpuscular HGB Conc 31.9 GM/DL (32-36); Mean Corpuscular Volume 92.3 FL (87-102); Mean Platelet Volume 11.1 FL (9.6-12.0); Monocytes % 4.2 % (1.7-12.7); Platelet Count 182 T/CUMM (130-400); Red Blood Count 3.63 MC/CUMM (3.8-5.5); Red Cell Distribution Width 12.6 % (9.3-17.3); White Blood Count 9.7 T/CUMM (4-12)
[2020-01-21] MEDS: LATANOPROST 0.005% OPH SOLN 2.5 ML BOTTLE BOTH EYES SCH (21:35)
[2020-01-22 05:03] LABS: Hematocrit 30.5 VOL% (35.7-47.0); Hemoglobin 9.9 GM/DL (12.0-16.0); Immature Granulocytes % 0.6 %; Lymphocytes % 9.9 % (21.3-54.2); Mean Corpuscular HGB Conc 32.5 GM/DL (32-36); Mean Corpuscular Volume 89.4 FL (87-102); Mean Platelet Volume 11.5 FL (9.6-12.0); Monocytes % 8.1 % (1.7-12.7); Neutrophils % 81.4 % (38.7-73.9); Platelet Count 164 T/CUMM (130-400); Red Blood Count 3.41 MC/CUMM (3.8-5.5); Red Cell Distribution Width 12.8 % (9.3-17.3); White Blood Count 7.1 T/CUMM (4-12)
[2020-01-22 05:04] LABS: Immature Granulocytes Absolute 0.04 #; Lymphocytes # 0.7 10*3/uL (1.4-4.0)
[2020-01-22 05:26] LABS: Calcium 7.8 MG/DL (8.5-10.1); Osmolality,Calculated 284.3 MOS/KG (273-304)
[2020-01-22] MEDS: COLESEVELAM 625 MG TABLET PO SCH ×3 (10:36→18:00)
[2020-01-22] MEDS: TAMSULOSIN 0.4 MG CAPSULE PO SCH (10:37)
[2020-01-22] MEDS: ASPIRIN 325 MG TABLET PO SCH (10:37)
[2020-01-22] MEDS: amLODIPine 5 MG TABLET PO SCH (10:37)
[2020-01-22] MEDS: TIMOLOL 0.5% OPH SOLN 5 ML BOTTLE BOTH EYES SCH (10:43)
[2020-01-22] MEDS ORDERED: ERGOCALCIFEROL 50,000 UNIT CAPSULE PO SCH (13:30)
[2020-01-22] MEDS: ENOXAPARIN 30 MG/0.3 ML SYRINGE SUBCUT SCH (18:00)
[2020-01-22] MEDS: LATANOPROST 0.005% OPH SOLN 2.5 ML BOTTLE BOTH EYES SCH (23:57)
[2020-01-22] MEDS: CALCIUM (CARBONATE)/VITAMIN D 600 MG-400 UNIT TABLET PO SCH (23:57)
[2020-01-23 06:27] LABS: Basophils % 0.2 % (0.0-0.8); Eosinophils # 0.1 10*3/uL (0.0-0.87); Eosinophils % 0.9 % (0.00-10.9); Hematocrit 28.9 VOL% (35.7-47.0); Hemoglobin 9.3 GM/DL (12.0-16.0); Immature Granulocytes % 0.5 %; Immature Granulocytes Absolute 0.04 #; Lymphocytes # 1.3 10*3/uL (1.4-4.0); Lymphocytes % 15.7 % (21.3-54.2); Mean Corpuscular HGB Conc 32.2 GM/DL (32-36); Mean Corpuscular Volume 90.3 FL (87-102); Mean Platelet Volume 11.1 FL (9.6-12.0); Monocytes % 10.2 % (1.7-12.7); Neutrophils % 72.5 % (38.7-73.9); Platelet Count 159 T/CUMM (130-400); Red Cell Distribution Width 12.8 % (9.3-17.3)
[2020-01-23] MEDS ORDERED: LEVOTHYROXINE 125 MCG TABLET PO SCH (06:30)
[2020-01-23] MEDS: SODIUM CHLORIDE 0.9% 1,000 ML IV SCH ×3 (08:29→17:07)
[2020-01-23] MEDS: TIMOLOL 0.5% OPH SOLN 5 ML BOTTLE BOTH EYES SCH (08:36)
[2020-01-23] MEDS: amLODIPine 5 MG TABLET PO SCH (08:37)
[2020-01-23] MEDS: TAMSULOSIN 0.4 MG CAPSULE PO SCH (08:37)
[2020-01-23] MEDS: ASPIRIN 325 MG TABLET PO SCH (08:37)
[2020-01-23] MEDS: COLESEVELAM 625 MG TABLET PO SCH ×4 (08:37→17:10)
[2020-01-23] MEDS: CALCIUM (CARBONATE)/VITAMIN D 600 MG-400 UNIT TABLET PO SCH ×2 (08:37→21:35)
[2020-01-23] MEDS ORDERED: FUROSEMIDE 40 MG/4 ML VIAL IV ONE (13:45)
[2020-01-23] MEDS ORDERED: ALBUTEROL/IPRATROPIUM 3 ML NEB RESP TX PRN (13:45)
[2020-01-23] MEDS ORDERED: MAGNESIUM HYDROXIDE SUSP 30 ML UDCUP PO PRN (15:31)
[2020-01-23] MEDS: ENOXAPARIN 30 MG/0.3 ML SYRINGE SUBCUT SCH (17:07)
[2020-01-24] MEDS: LATANOPROST 0.005% OPH SOLN 2.5 ML BOTTLE BOTH EYES SCH (01:25)
[2020-01-24] MEDS: CALCIUM (CARBONATE)/VITAMIN D 600 MG-400 UNIT TABLET PO SCH (08:34)
[2020-01-24] MEDS: TAMSULOSIN 0.4 MG CAPSULE PO SCH (08:34)
[2020-01-24] MEDS: COLESEVELAM 625 MG TABLET PO SCH ×2 (08:34→12:19)
[2020-01-24] MEDS: amLODIPine 5 MG TABLET PO SCH (08:34)
[2020-01-24] MEDS: ASPIRIN 325 MG TABLET PO SCH (08:34)
[2020-01-24] MEDS: TIMOLOL 0.5% OPH SOLN 5 ML BOTTLE BOTH EYES SCH (08:42)
[2020-01-24] MEDS ORDERED: SODIUM PHOSPHATE ENEMA 133 ML BOTTLE RECTAL ONE (10:38)
[2020-01-24 11:10] VITALS: BP 129/57
[2020-01-24] MEDS: SODIUM CHLORIDE 0.9% 1,000 ML IV SCH (12:46)
[2020-01-28] MEDS ORDERED: ALENDRONATE 35 MG PO SCH (09:00)
== END 2020-01-24 12:43 | DRG 470 ==
LOC: EDUNIT# → EDBD → N.ED 20:10 → SUATTDRO 21:20 → N.EDINP 21:20 → N.3E 23:54
PROVIDERS: ADMIT Nurse Practitioner Family; ATTEND Internal Medicine